=== PATIENT | male | born 1980 | race Caucasian/White ===

== ENCOUNTER 2016-12-03 10:20 | Inpatient (IN) | payer OTHER ==
[2016-12-03 10:39] VITALS: BMI 32.8
[2016-12-03] MEDS ORDERED: Sodium Chloride 0.9% 1,000 ML IV STA (11:16)
--- NOTE | 2016-12-03 11:38 | ED PDOC ---
Arrival/HPI - General Chief Complaint: Abdominal Pain Time Seen by Provider: 12/03/16 11:16 Historian: Patient - History of Present Illness Narrative History of Present Illness (Text): 12/03/16 11:05 A 36 year old male with lower abdominal pain that started yesterday. Pain comes and goes and there are no relieving or exacerbating factors. Patient notes constipation for the past day but contrary to triage notes, the patient denies any difficulty with urination or other complaints at this time. Time/Duration: 24 hours Symptom Onset: Sudden Symptom Course: Unchanged Quality: Other Activities at Onset: Rest Context: Home Past Medical History - Provider Review Nursing Documentation Reviewed: Yes - Psychiatric Hx Substance Use: No Family/Social History - Physician Review Nursing Documentation Reviewed: Yes Family/Social History: Unknown Family HX Smoking Status: Former Smoker Hx Alcohol Use: Yes Frequency of alcohol use: Few days per week Hx Substance Use: No Allergies/Home Meds Allergies/Adverse Reactions: Allergies No Known Allergies Allergy (Verified 12/03/16 10:38) Home Medications: Home Meds Medication Instructions Recorded Confirmed No Known Home Med 12/03/16 12/03/16 Physical Exam - Physical Exam Narrative Physical Exam (Text): - Review of Systems Constitutional: Normal. absent: Fatigue, Weight Change, Fevers Eyes: Normal ENT: Normal Respiratory: Normal absent: SOB, Cough, Sputum Cardiovascular: Normal absent: Chest pain, Palpitations, Syncope Gastrointestinal: Abdominal pain. Constipation. absent: Diarrhea, Nausea, Vomiting Genitourinary: Normal. absent: Dysuria, Frequency, Hematuria Musculoskeletal: Normal. absent: Arthralgias, Back Pain, Neck Pain Skin: Normal Neurological: Normal absent: Focal Weakness Endocrine: Normal Hemo/Lymphatic: Normal Psychiatric: Normal - Physical exam Patient appears age appropriate, speaking full sentences without difficulty - Systems Exam Head: Present: Atraumatic, Normocephalic Pupils: Present: PERRL Extraocular Muscles: Present: EOMI Conjunctiva: Present: Normal Mouth: Present: Moist Mucous Membranes Neck: Present: Normal Range of Motion. No: MIDLINE TENDERNESS, Paraspinal Tenderness Respiratory/Chest: Present: Clear to Auscultation, Good Air Exchange. No: Respiratory Distress, Accessory Muscle Use, Tachypneic Cardiovascular: Present: Regular Rhythm, tachycardia, Normal S1, S2, Peripheral Pulses Present. No: Murmurs Abdomen: Present: Normal Bowel Sounds. Diffuse abdominal tenderness with palpation. No: Peritoneal Signs, Rebound, Guarding, Distention Rectal: Good rectal tone. No hemorrhoids. No stool impaction. Female key account coordinator ( RN- Mis) present. Back: Present: Normal Inspection. No: Midline Tenderness, Paraspinal Tenderness Upper Extremity: Present: Normal Inspection. No: Cyanosis, Edema Lower Extremity: Present: Normal Inspection. No: Edema Neurological: Present: GCS=15, Speech Normal, cranial nerves II through XII fully intact with no cerebellar abnormality, neuro-sensory fully intact. No focal neurological deficits. Skin: Present: Warm, Dry, Normal Color. No: Rashes Lymphatic: Present: OX3, NI, NC Psychiatric: Present: Alert, Oriented x 3, Normal Insight, Normal Concentration Vital Signs Reviewed: Yes Vital Signs Temp Pulse Resp BP Pulse Ox 12/03/16 13:16 106 H 16 126/70 98 12/03/16 12:06 103 H 18 140/78 95 12/03/16 10:38 98.7 F 105 H 16 126/91 H 97 Temperature: Afebrile Blood Pressure: Hypertensive Pulse: Tachycardic Respiratory Rate: Normal Appearance: Positive for: Well-Appearing, Non-Toxic, Comfortable Pain Distress: None Mental Status: Positive for: Alert and Oriented X 3 Medical Decision Making ED Course and Treatment: 12/03/16 11:05 Impression: A 36 year old male with lower abdominal pain. On physical examination the patient has diffuse tenderness with palpation of the abdomen. Differential Diagnosis include but are not limited to: gastritis vs. constipation vs. diverticulitis vs. colitis Plan: -- Abdomen/Pelvis CT -- Labs -- Urinalysis -- Morphine, Toradol and IV Fluids -- Reassess and disposition Progress Notes: 12/03/16 13:15 Abdomen/Pelvis CT: Creator : Matthew Butcher MD IMPRESSION: There is severe diverticulitis of the sigmoid colon. There is mural thickening and extensive mesenteric inflammation. There is no evidence of an abscess or free air. 12/03/16 14:[address] Rodrigues, accepted pt to his service pt aware of and agrees with plan states pain is coming back. resolved after the first dose of morphine. - Lab Interpretations Lab Results: 12/03/16 11:30 12/03/16 11:30 Lab Results 12/03/16 11:30: Sodium 136, Potassium 3.7, Chloride 101, Carbon Dioxide 24, Anion Gap 15, BUN 11, Creatinine 0.7, Est GFR ( Amer) > 60, Est GFR (Non- Af Amer) > 60, Random Glucose 119 H, Calcium 9.6, Total Bilirubin 1.5 H, AST 38 , ALT 77 H, Alkaline Phosphatase 78, Total Protein 8.1, Albumin 4.4, Globulin 3.7, Albumin/Globulin Ratio 1.2, Lipase 63 12/03/16 11:30: PT 10.9, INR 1.01, APTT 27.9 12/03/16 11:30: WBC 15.3 H, RBC 6.04, Hgb 16.3, Hct 46.9, MCV 77.6 L, MCH 27.0, MCHC 34.8, RDW 15.7 H, Plt Count 229, MPV 11.7 H, Gran % 82.5 H, Lymph % (Auto) 10.3 L, Steele % (Auto) 7.0 H, Eos % (Auto) 0.1 L, Baso % (Auto) 0.1, Gran # 12.59 H, Lymph # 1.6, Steele # 1.1 H, Eos # 0.0, Baso # 0.01 I have reviewed the lab results: Yes - RAD Interpretation Radiology Orders: 12/03/16 11:17 ABD & PELVIS IV CONTRAST ONLY [CT] Stat - Medication Orders Current Medication Orders: Discontinued Medications Sodium Chloride (Sodium Chloride 0.9%) 1,000 mls @ 1,000 mls/hr IV .Q1H STA Stop: 12/03/16 12:15 Last Admin: 12/03/16 11:31 Dose: 1,000 mls/hr Iohexol (Omnipaque 350 150 Ml) Confirm Administered Dose 150 ml .ROUTE .STK-MED ONE Stop: 12/03/16 12:43 Ketorolac Tromethamine (Toradol) 15 mg IVP STAT STA Stop: 12/03/16 11:17 Last Admin: 12/03/16 11:31 Dose: 15 mg Ketorolac Tromethamine (Toradol) Confirm Administered Dose 30 mg .ROUTE .STK- MED ONE Stop: 12/03/16 11:23 Last Admin: 12/03/16 11:31 Dose: Morphine Sulfate (Morphine) 8 mg IVP STAT STA Stop: 12/03/16 11:41 Last Admin: 12/03/16 12:02 Dose: 8 mg - Scribe Statement The provider has reviewed the documentation as recorded by the Joe Monroy Provider Joe Attestation: All medical record entries made by the Scribdaria were at my direction and personally dictated by me. I have reviewed the chart and agree that the record accurately reflects my personal performance of the history, physical exam, medical decision making, and the department course for this patient. I have also personally directed, reviewed, and agree with the discharge instructions and disposition. Disposition/Present on Arrival - Present on Arrival Any Indicators Present on Arrival: No History of DVT/PE: No History of Uncontrolled Diabetes: No Urinary Catheter: No History of Decub. Ulcer: No History Surgical Site Infection Following: None - Disposition Have Diagnosis and Disposition been Completed?: Yes Diagnosis: Diverticulitis Disposition: HOSPITALIZED Disposition Time: 14:30 Patient Plan: Admission Condition: FAIR Referrals: Kierra Strange MD [Primary Care Provider] - Follow up with primary
[2016-12-03 11:49] LABS: ADD MANUAL DIFF? NO
[2016-12-03 12:02] LABS: BASO # 0.01 K/mm3 (0.0-2.0); BASO % 0.1 % (0.0-3.0); EOS % 0.1 % (1.5-5.0); GRAN # 12.59 (1.4-6.5); GRAN % 82.5 % (50.0-68.0); HEMATOCRIT 46.9 % (42.0-52.0); LYMPH # 1.6 (1.2-3.4); LYMPH % 10.3 % (22.0-35.0); MEAN CELL VOLUME 77.6 fL (80.0-105.0); MEAN CORPUSCULAR HGB CONC 34.8 g/dl (31.0-37.0); MEAN PLATELET VOLUME 11.7 fl (7.0-11.0); MONO # 1.1 (0.1-0.6); PLATELET COUNT 229 10^3/uL (120.0-450.0); RED CELL DISTRIBUTION WIDTH 15.7 % (11.5-14.5); WHITE BLOOD COUNT 15.3 10^3/ul (4.5-11.0)
[2016-12-03 12:08] LABS: ALB/GLOB RATIO 1.2 (1.1-1.8); ALKALINE PHOSPHATASE 78 U/L (38-133); ALT/SGPT 77 U/L (7-56); AST/SGOT 38 U/L (15-59); BILIRUBIN,TOTAL 1.5 mg/dL (0.2-1.3); BLOOD UREA NITROGEN 11 mg/dL (7-21); CALCIUM 9.6 mg/dL (8.4-10.5); CARBON DIOXIDE 24 mmol/L (21-33); CHLORIDE 101 mmol/L (98-107); GFR AFRICAN-AMERICAN > 60; GLUCOSE,RANDOM 119 mg/dL (70-110); LIPASE 63 U/L (23-300); POTASSIUM 3.7 mmol/L (3.6-5.0); SODIUM 136 mmol/L (132-148); TOTAL PROTEIN 8.1 g/dL (5.8-8.3)
[2016-12-03 12:18] LABS: INR 1.01 (0.93-1.08); PARTIAL THROMBOPLASTIN TIME 27.9 Seconds (23.7-30.8)
--- NOTE | 2016-12-03 13:12 | CT ---
PROCEDURE: CT Abdomen and Pelvis with contrast HISTORY: abd pain COMPARISON: None. TECHNIQUE: Contrast dose: 150 cc of Omni 350 Radiation dose: Total exam DLP = 913 mGy-cm. This CT exam was performed using one or more of the following dose reduction techniques: Automated exposure control, adjustment of the mA and/or kV according to patient size, and/or use of iterative reconstruction technique. FINDINGS: LOWER THORAX: Unremarkable. LIVER: Unremarkable. No gross lesion or ductal dilatation. GALLBLADDER AND BILE DUCTS: Unremarkable. PANCREAS: Unremarkable. No gross lesion or ductal dilatation. SPLEEN: Unremarkable. ADRENALS: Unremarkable. No mass. KIDNEYS AND URETERS: Unremarkable. No hydronephrosis. No solid mass. VASCULATURE: Unremarkable. No aortic aneurysm. BOWEL: There is severe diverticulitis of the sigmoid colon. There is mural thickening and extensive mesenteric inflammation. There is no evidence of an abscess or free air. APPENDIX: Normal appendix. PERITONEUM: Unremarkable. No free fluid. No free air. LYMPH NODES: Unremarkable. No enlarged lymph nodes. BLADDER: Unremarkable. REPRODUCTIVE: Unremarkable. BONES: No acute fracture. OTHER FINDINGS: None. IMPRESSION: There is severe diverticulitis of the sigmoid colon. There is mural thickening and extensive mesenteric inflammation. There is no evidence of an abscess or free air.
[2016-12-03] MEDS ORDERED: cefTRIAXone 1 gm 1 GM/100 ML BAG IV STA (14:30)
[2016-12-03] MEDS ORDERED: metroNIDAZOLE IV 500 mg/100 ml 500 MG/100 ML BAG IVPB STA (14:30)
[2016-12-03] MEDS ORDERED: Morphine 4 mg/ml ISec IVP STA (14:30)
--- NOTE | 2016-12-03 15:18 | CARD ---
APPROVED REPORT EKG Measurement Heart [id number] <Conclusion> Sinus tachycardia NSSTW changes
[2016-12-03] MEDS: Sodium Chloride 0.9% 1,000 ML IV SCH (17:11)
[2016-12-03] MEDS: Morphine 2 mg/ml ISec IVP PRN ×2 (18:12→21:43)
--- NOTE | 2016-12-03 20:02 | CP.PCM.HP ---
<Tanvir Albarado - Last Filed: 12/03/16 19:57> History of Present Illness - History of Present Illness History of Present Illness: CC: Worsening abd pain x2 days HPI: This is a 36 yo M with no PMH who presents to [facility] ED with complaint of diffuse abdominal pain x2 days, progressively worsening, with concurrent diarrhea and reduced PO intake/appetite. Patient reports pain beginning upon waking yesterday, persisting and worsening through the day, no relieved with or without PO intake, but denies emesis with PO intake (1x meal of solid food, fluids throughout the day) or emesis at any other time. Patient came to the ED after the pain worsened further today, beyond what he could tolerate. He denies any similar prior episodes. Notes 2 episodes of minimal watery diarrhea since symptoms began, but denies melena/hematochezia; reports feeling of needing to move his bowels, but unable to pass more than minimal diarrhea and flatus. Denies new/unusual foods in diet prior to presentation, denies prior abdominal surgeries, and denies chest pain/SOB/focal weakness/ dizziness/fever. In the ED, CT abd was obtained and was notable for severe diverticulitis of the sigmoid colon, mural thickening, and extensive mesenteric inflammation, but no abscess or free air evident. EKG was also obtained, only notable for sinus tachy to 105. Labs were notable for WBCs 15.3 and mildly elevated TBili of 1.5. Patient was then admitted for IVF and IV abx for severe diverticulitis. 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 Strange Present on Admission - Present on Admission Any Indicators Present on Admission: No History of DVT/PE: No History of Uncontrolled Diabetes: No Urinary Catheter: No Decubitus Ulcer Present: No Review of Systems - Constitutional Constitutional: Chills. absent: Fever - EENT Eyes: absent: Blurred Vision, Change in Vision, Loss of Vision Ears: absent: Disequilibrium, Dizziness Nose/Mouth/Throat: Sore Throat (1 week prior, resolved prior to current sx with regular use of NSAIDS (last dose yesterday AM)). absent: Dysphagia, Mouth Pain , Neck Pain - Cardiovascular Cardiovascular: absent: Chest Pain, Chest Pain at Rest, Chest Pain with Activity , Dyspnea, Dyspnea on Exertion, Pain Radiating to Arm/Neck/Jaw, Lightheadedness , Palpitations, Rapid Heart Rate, Syncope - Respiratory Respiratory: absent: Cough, Dyspnea, Hemoptysis, Dyspnea on Exertion, Pain on Inspiration - Gastrointestinal Gastrointestinal: Abdominal Pain (progressively worsening abd pain x2 days), Bloating, Constipation (sensation of needing to move bowels more than passing minimal watery diarrhea), Diarrhea (watery diarrhea, no blood noted). absent: Coffee Ground Emesis, Dysphagia, Fecal Incontinence, Hematemesis, Hematochezia, Nausea, Vomiting - Genitourinary Genitourinary: Dysuria (intermittent burning sensation with urination x2 days). absent: Change in Urinary Stream, Difficulty Urinating, Flank Pain, Hematuria , Pyuria - Musculoskeletal Musculoskeletal: absent: Back Pain, Joint Swelling, Neck Pain, Numbness, Stiffness - Integumentary Integumentary: absent: Pruritus, Rash - Neurological Neurological: absent: Disequilibrium, Dizziness, Focal Weakness, Lack of Coordination, Loss of Vision, Syncope, Weakness, Other Visual Disturbances - Psychiatric Psychiatric: absent: Anxiety - Endocrine Endocrine: absent: Fatigue, Palpitations Past Patient History - Past Social History Smoking Status: Former Smoker - PSYCHIATRIC Hx Substance Use: No - SURGICAL HISTORY Hx Surgeries: No Meds Allergies/Adverse Reactions: Allergies Allergy/AdvReac Type Severity Reaction Status Date / Time No Known Allergies Allergy Verified 12/03/16 10:38 Physical Exam - Constitutional Appears: Non-toxic, No Acute Distress (at rest), In Acute Distress (with any movement or any palpation of abdominal region) - Head Exam Head Exam: ATRAUMATIC, NORMAL INSPECTION, NORMOCEPHALIC - Eye Exam Eye Exam: EOMI, Normal appearance. absent: Conjunctival injection, Scleral icterus Pupil Exam: absent: Irregular, Unequal - ENT Exam ENT Exam: Mucous Membranes Moist. absent: Mucous Membranes Dry - Neck Exam Neck exam: Positive for: Full Rom. Negative for: Tenderness - Respiratory Exam Respiratory Exam: Clear to Auscultation Bilateral, NORMAL BREATHING PATTERN. absent: Accessory Muscle Use, Chest Wall Tenderness, Decreased Breath Sounds, Rales, Rhonchi, Wheezes - Cardiovascular Exam Cardiovascular Exam: Tachycardia, REGULAR RHYTHM, +S1, +S2. absent: Bradycardia , Diastolic murmur, Irregular Rhythm, JVD, RRR, Systolic Murmur - GI/Abdominal Exam GI & Abdominal Exam: Guarding, Normal Bowel Sounds, Rebound (moderate diffuse rebound tenderness bilaterally), Soft, Tenderness (acutely and exquisitely tender to any and all abdominal palpation, predominantly at and immediately above waistline region, but still significantly tender to palpation at R and L upper quadrants). absent: Diminished Bowel Sounds, Distended, Firm, Hyperactive Bowel Sounds, Hypoactive Bowel Sounds, Rigid - Rectal Exam Rectal Exam: Deferred (performed by ED physician prior to exam, reported no stool present) - Extremities Exam Extremities exam: Positive for: full ROM, normal capillary refill, normal inspection, pedal pulses present. Negative for: calf tenderness, joint swelling , pedal edema, tenderness - Back Exam Back exam: absent: CVA tenderness (L), CVA tenderness (R) - Neurological Exam Neurological exam: Alert, Oriented x3 - Psychiatric Exam Psychiatric exam: Normal Affect, Normal Mood - Skin Skin Exam: Dry, Intact, Normal Color, Warm Results - Vital Signs Recent Vital Signs: Last Vital Signs Temp 98.7 F 12/03/16 10:38 Pulse 89 12/03/16 16:19 Resp 18 12/03/16 16:19 BP 126/71 12/03/16 16:19 Pulse Ox 99 12/03/16 16:19 - Labs Result Diagrams: 12/03/16 11:30 12/03/16 11:30 Assessment & Plan - Assessment and Plan (Free Text) Assessment: This is a 36 yo M with no PMH who presents to [facility] ED with complaint of diffuse abdominal pain x2 days, progressively worsening, with concurrent diarrhea and reduced PO intake/appetite, and was found to have severe diverticulitis. Plan: 1) Severe diverticulitis -Found on CT abd/pelvis with IV contrast in ED -No signs of abscess or free air, not an acute abdomen requiring surgical intervention -NPO and IVF, bowel rest -Pain control with morphine -Empiric Abx coverage with IV Rocephin and Flagyl (got 1x each in ED) -GI consulted (Dr. Peoples), appreciate any recs; defer to GI for diet advancement -Avoid NSAIDs -F/u leukocytosis on tomorrow AM labs Dispo: Inpt Med/Surg FEN: NPO except meds, NS IVF at 125cc/hr Access: Peripheral IV Consults: GI Ppx: Protonix 40mg IV q12, SCDs for DVT ppx Patient seen, reviewed, and discussed with attending, Dr. Rodrigues. - Date & Time Date: 12/03/16 Time: 14:45 Decision To Admit - Pt Status Changed To: Hospital Disposition Of: Inpatient Admission - Admit Certification Admit to Inpatient:: After my assessment, the patient will require hospitalization for at least two midnights. This is because of the severity of symptoms shown, intensity of services needed, and/or the medical risk in this patient being treated as an outpatient. - . Bed Request Type: Med/Surg <Sebas Rodrigues - Last Filed: 12/03/16 22:44> Results - Vital Signs Recent Vital Signs: Last Vital Signs Temp 98.7 F 12/03/16 21:09 Pulse 89 12/03/16 21:09 Resp 18 12/03/16 21:09 BP 126/71 12/03/16 21:09 Pulse Ox 99 12/03/16 16:19 - Labs Result Diagrams: 12/03/16 11:30 12/03/16 11:30 Attending/Attestation - Attestation I have personally seen and examined this patient.: Yes I have fully participated in the care of the patient.: Yes I have reviewed all pertinent clinical information: Yes Notes (Text): 12/03/16 22:41 36 year old male with no significant past medical history who presents with complaint of lower abdominal pain. He was found to have severe diverticulitis on CT scan. Continue with NPO, IVF, analgesics and antibiotics. GI evaluation is requested. Leukocytosis likely secondary to above. However patient is also complaining of dysuria so UA is ordered. Sebas Rodrigues MD Hospitalist.
[2016-12-03] MEDS ORDERED: Pneumococcal 23-Valent Vaccine IM ONE (21:19)
[2016-12-03] MEDS: metroNIDAZOLE IV 500 mg/100 ml 500 MG/100 ML BAG IVPB SCH (21:38)
[2016-12-04] MEDS: Morphine 2 mg/ml ISec IVP PRN ×4 (01:44→12:59)
[2016-12-04] MEDS: Sodium Chloride 0.9% 1,000 ML IV SCH (01:45)
[2016-12-04] MEDS: metroNIDAZOLE IV 500 mg/100 ml 500 MG/100 ML BAG IVPB SCH ×3 (05:20→22:20)
[2016-12-04 05:40] LABS: PH,URINE 6.5 (4.7-8.0); URINE BILIRUBIN SMALL (NEGATIVE); URINE BLOOD MODERATE (NEGATIVE); URINE GLUCOSE (UA) NEGATIVE (NEGATIVE); URINE KETONE 40 mg/dL (NEGATIVE); URINE LEUKOCYTE ESTERASE NEGATIVE Leu/uL (NEGATIVE); URINE PROTEIN 30 mg/dL (<30 mg/dL)
[2016-12-04 05:55] LABS: URINE APPEARANCE SL CLOUDY (CLEAR); URINE COLOR YELLOW (YELLOW)
[2016-12-04 05:59] LABS: URINE BACTERIA SMALL (NEG); URINE EPITHELIAL CELLS 0 - 2 /hpf (0-5); URINE WBC 0 - 2 /hpf (0-6)
--- NOTE | 2016-12-04 07:23 | CON ---
DATE: 12/04/2016 The patient is a 36-year-old white male admitted with a chief complaint of abdominal pain. The patient has no past medical history of GI issues. Complaining of diffuse abdominal pain about a day and a half prior to admission with diarrhea, but denied any hematemesis or rectal bleeding. The patient's abdominal pain reached a maximum resulting in increased discomfort with mobility , walking upstairs, to the point where he couldn't move. Although he passed some solid bowel movements, this subsequently turned to watery diarrhea prior to admission. This morning, the patient still indicates diffuse abdominal pain increasing with any movement, especially walking and passing urine or passing gas. PHYSICAL EXAMINATION: VITAL SIGNS: I reviewed this patient's vital signs. HEENT: Noncontributory except for dry mouth. LUNGS: Clear to auscultation. HEART: Regular rhythm. ABDOMEN: Nontender in the epigastric, left upper quadrant. The patient is diffusely tender with some rebound noted in all quadrants, especially periumbilical and left lower quadrant. There is a significant fullness appreciated in the left lower quadrant. LABORATORY DATA: Evaluation of the patient's laboratory data indicates white count of 15,000 with an H and H of 16 and 46. INR is within normal limits. Chemistry indicates a mild elevation of AST, ALT, ratio of which is 38/77. I reviewed the CT images and also report. The CAT scan is significant for a mild thickness in the wall of the stomach, scattered areas of stool throughout the colon and a significant amount of inflammation with diverticulitis in the area of the sigmoid colon with mesenteric inflammation and mural thickening, stranding. It is hard to delineate whether there was an abscess. OVERALL ASSESSMENT: This is a 36-year-old white male admitted with severe diverticulitis involving the sigmoid colon. This is his first episode. Review of orders indicates the patient is on metronidazole as well as ceftriaxone and analgesics in the form of morphine which seems to be working. He is currently n.p.o. Due to the amount of rebound this patient is currently experiencing, may consider a surgical evaluation later on this morning. Chris Peoples DO, PhD cc: [id number] TT: 12/04/2016 07:23:23 Confirmation # [id number] Dictation # [id number] [id number]
[2016-12-04 09:07] LABS: ADD MANUAL DIFF? NO
[2016-12-04 09:12] LABS: BASO # 0.01 K/mm3 (0.0-2.0); BASO % 0.1 % (0.0-3.0); EOS % 0.3 % (1.5-5.0); GRAN # 9.92 (1.4-6.5); GRAN % 81.4 % (50.0-68.0); HEMATOCRIT 40.3 % (42.0-52.0); LYMPH # 1.5 (1.2-3.4); MEAN CELL VOLUME 79.3 fL (80.0-105.0); MEAN CORPUSCULAR HEMOGLOBIN 27.6 pg (25.0-35.0); MEAN CORPUSCULAR HGB CONC 34.7 g/dl (31.0-37.0); MEAN PLATELET VOLUME 10.8 fl (7.0-11.0); MONO # 0.8 (0.1-0.6); MONO % 6.2 % (1.0-6.0); PLATELET COUNT 179 10^3/uL (120.0-450.0); RED CELL DISTRIBUTION WIDTH 14.3 % (11.5-14.5); WHITE BLOOD COUNT 12.2 10^3/ul (4.5-11.0)
[2016-12-04 09:20] LABS: ALKALINE PHOSPHATASE 63 U/L (38-133); ALT/SGPT 55 U/L (7-56); AST/SGOT 19 U/L (15-59); BILIRUBIN,TOTAL 1.9 mg/dL (0.2-1.3); BLOOD UREA NITROGEN 10 mg/dL (7-21); CALCIUM 8.9 mg/dL (8.4-10.5); CARBON DIOXIDE 25 mmol/L (21-33); CHLORIDE 101 mmol/L (98-107); GFR AFRICAN-AMERICAN > 60; GLUCOSE,RANDOM 102 mg/dL (70-110); MAGNESIUM 1.7 mg/dL (1.7-2.2); PHOSPHOROUS 2.8 mg/dL (2.5-4.5); POTASSIUM 3.5 mmol/L (3.6-5.0); SODIUM 134 mmol/L (132-148)
[2016-12-04] MEDS ORDERED: cefTRIAXone 2 GM IN NS 2 GM/100 ML BAG IVPB SCH (10:00)
--- NOTE | 2016-12-04 13:44 | CP.PCM.CON ---
<Delvin Perrin - Last Filed: 12/04/16 13:39> History of Present Illness - History of Present Illness History of Present Illness: Surgery: Dr. Forte CC: abdominal pain HPI: Patient is a 36 y/o male who presented last night for left sided abdominal pain. Patient reports pain started on Saturday and progressively got worse. He describes the pain as sharp cramp-like pains. He reports chills but no fever. He denies n/v. He reports normal bowel movements about 3x/day. No blood. He states he has an associated feeling of needing to have a bowel movement however has been unable to today. He denies having pain like this in the past. He denies being seen by a GI doctor in the past, denies colonoscopy. He denies family history of colon CA or other GI problems PMH: denies PSH: age 7 tonsillectomy Social: , denies ETOH abuse or current tobacco use Family: denies family history of colon CA Review of Systems - Constitutional Constitutional: Chills. absent: Anorexia, Fever - EENT Eyes: absent: Blurred Vision, Change in Vision Ears: absent: Disequilibrium, Dizziness Nose/Mouth/Throat: absent: Nasal Congestion, Sore Throat - Cardiovascular Cardiovascular: absent: Chest Pain, Dyspnea - Respiratory Respiratory: absent: Cough, Wheezing - Gastrointestinal Gastrointestinal: Abdominal Pain, Bloating, Cramping. absent: Constipation, Diarrhea, Hematemesis, Hematochezia, Nausea, Vomiting - Genitourinary Genitourinary: absent: Hematuria, Pyuria - Integumentary Integumentary: absent: Wounds, Jaundice - Neurological Neurological: absent: Dizziness, Weakness - Endocrine Endocrine: absent: Polydipsia, Polyphagia - Hematologic/Lymphatic Hematologic: absent: Easy Bleeding, Easy Bruising Past Patient History - Past Social History Smoking Status: Former Smoker - MUSCULOSKELETAL/RHEUMATOLOGICAL Hx Falls: No Hx Fractures: Yes (right arm casted as a child) - PSYCHIATRIC Hx Substance Use: No - SURGICAL HISTORY Hx Surgeries: Yes (tonsillectomy as a child) Meds Allergies/Adverse Reactions: Allergies Allergy/AdvReac Type Severity Reaction Status Date / Time No Known Allergies Allergy Verified 12/03/16 10:38 - Medications Medications: Current Medications Acetaminophen (Tylenol 325mg Tab) 650 mg PO Q4 PRN PRN Reason: Fever >100.4 F Metronidazole (Flagyl) 500 mg in 100 mls @ 100 mls/hr IVPB Q8 [facility] PRN Reason: Protocol Last Admin: 12/04/16 05:20 Dose: 100 mls/hr Ceftriaxone Sodium (Rocephin 2 Gm Ivpb) 2 gm in 100 mls @ 100 mls/hr IVPB DAILY [facility] PRN Reason: Protocol Last Admin: 12/04/16 09:06 Dose: 100 mls/hr Sodium Chloride (Sodium Chloride 0.9%) 1,000 mls @ 125 mls/hr IV .Q8H [facility] Last Admin: 12/04/16 01:45 Dose: 125 mls/hr Potassium Chloride (Potassium Chloride 20 Meq/100 Ml) 20 meq in 100 mls @ 50 mls/hr IVPB Q2H [facility] Stop: 12/04/16 16:44 Last Admin: 12/04/16 12:59 Dose: 50 mls/hr Morphine Sulfate (Morphine) 4 mg IVP Q4H PRN PRN Reason: Pain, moderate (4-7) Ondansetron HCl (Zofran Inj) 4 mg IVP Q4H PRN PRN Reason: Nausea/Vomiting Pantoprazole Sodium (Protonix Inj) 40 mg IVP Q12 [facility] Last Admin: 12/04/16 09:06 Dose: 40 mg Physical Exam - Constitutional Appears: Non-toxic, No Acute Distress - Head Exam Head Exam: ATRAUMATIC, NORMOCEPHALIC - Eye Exam Eye Exam: EOMI, Normal appearance - ENT Exam ENT Exam: Mucous Membranes Moist - Respiratory Exam Respiratory Exam: NORMAL BREATHING PATTERN. absent: Respiratory Distress - Cardiovascular Exam Cardiovascular Exam: REGULAR RHYTHM. absent: Tachycardia - GI/Abdominal Exam GI & Abdominal Exam: Distended, Guarding (voluntary), Soft, Tenderness (LLQ and supra-pubic). absent: Hernia, Rebound, Rigid - Extremities Exam Extremities exam: Positive for: normal inspection. Negative for: calf tenderness - Neurological Exam Neurological exam: Alert, Oriented x3 - Psychiatric Exam Psychiatric exam: Normal Affect, Normal Mood - Skin Skin Exam: Dry, Normal Color, Warm Results - Vital Signs Recent Vital Signs: Last Vital Signs Temp 100.1 F H 12/04/16 08:17 Pulse 100 H 12/04/16 08:17 Resp 22 12/04/16 08:17 BP 127/78 12/04/16 08:17 Pulse Ox 97 12/04/16 08:17 - Labs Result Diagrams: 12/04/16 05:30 12/04/16 05:30 Labs: Laboratory Results - last 24 hr 12/04/16 12/04/16 12/04/16 04:40 05:30 05:30 WBC 12.2 H D RBC 5.08 Hgb 14.0 Hct 40.3 L MCV 79.3 L MCH 27.6 MCHC 34.7 RDW 14.3 Plt Count 179 MPV 10.8 Gran % 81.4 H Lymph % (Auto) 12.0 L [place] % (Auto) 6.2 H Eos % (Auto) 0.3 L Baso % (Auto) 0.1 Gran # 9.92 H Lymph # 1.5 [place] # 0.8 H Eos # 0.0 Baso # 0.01 Sodium 134 Potassium 3.5 L Chloride 101 Carbon Dioxide 25 Anion Gap 12 BUN 10 Creatinine 0.7 Est GFR ( Amer) > 60 Est GFR (Non-Af Amer) > 60 Random Glucose 102 Calcium 8.9 Phosphorus 2.8 Magnesium 1.7 Total Bilirubin 1.9 H AST 19 ALT 55 Alkaline Phosphatase 63 Total Protein 7.0 Albumin 3.5 Globulin 3.4 Albumin/Globulin Ratio 1.0 L Urine Color Yellow Urine Appearance Sl cloudy Urine pH 6.5 Ur Specific [place] 1.025 Urine Protein 30 H Urine Glucose (UA) Negative Urine Ketones 40 H Urine Blood Moderate H Urine Nitrate Negative Urine Bilirubin Small H Urine Urobilinogen 2.0 H Ur Leukocyte Esterase Negative Urine RBC 2 - 5 Urine WBC 0 - 2 Ur Epithelial Cells 0 - 2 Urine Bacteria Small - Impressions Impression: CT: severe acute sigmoid diverticulitis w/o perforation or abscess Assessment & Plan - Assessment and Plan (Free Text) Assessment: 36 y/o male w/ severe acute uncomplicated diverticulitis Plan: -cont ABX IV -cont NPO -serial abdominal exams -encourage ambulation -pain control -IVFs -GI recs -will follow -further recs per Dr. Forte AKWhite PGY1 <Levi Forte - Last Filed: 12/09/16 22:14> Results - Vital Signs Recent Vital Signs: Last Vital Signs Temp 98.5 F 12/07/16 08:42 Pulse 63 12/07/16 08:42 Resp 18 12/07/16 08:42 BP 113/72 12/07/16 08:42 Pulse Ox 97 12/07/16 08:42 - Labs Result Diagrams: 12/07/16 07:00 12/07/16 07:00 Attending/Attestation - Attestation I have personally seen and examined this patient.: Yes I have fully participated in the care of the patient.: Yes I have reviewed all pertinent clinical information: Yes Notes (Text): 12/09/16 22:14 Pt was seen and examined at bedside on 12/05/2016 Agree with above note and assessment Pt with Diverticulitis, resolving C/w IV antibiotics Plan d.w pt and family in detail Risk and benefit explained in detail. C/w current mx
--- NOTE | 2016-12-04 14:56 | CP.PCM.PN ---
<Tanvir Albarado - Last Filed: 12/04/16 16:00> Subjective - Date & Time of Evaluation Date of Evaluation: 12/04/16 Time of Evaluation: 07:50 - Subjective Subjective: Internal Medicine Progress Note for Dr. Rodrigues Patient seen and examined at bedside. Today is hospital day 2. Overnight into this AM, developed temp of 100.1F; no other acute events. Denies chest pain, shortness of breath, nausea, emesis, focal weakness; no BM since admission yesterday, some urination but minimal and still has burning sensation. Notes that pain is controlled with pain medication so long as he isn't moving or so long as no one is palpating his abdomen; he is still acutely tender to any abdominal palpation, and will not let staff test to see if rebound tenderness is still present. Objective - Vital Signs/Intake and Output Vital Signs (last 24 hours): Temp Pulse Resp BP Pulse Ox 100.1 F H 100 H 22 127/78 97 12/04/16 08:17 12/04/16 08:17 12/04/16 08:17 12/04/16 08:17 12/04/16 08:17 Intake and Output: 12/04/16 12/04/16 06:59 18:59 Intake Total 0 1750 Output Total 100 150 Balance -100 1600 - Medications Medications: Current Medications Acetaminophen (Tylenol 325mg Tab) 650 mg PO Q4 PRN PRN Reason: Fever >100.4 F Metronidazole (Flagyl) 500 mg in 100 mls @ 100 mls/hr IVPB Q8 [facility] PRN Reason: Protocol Last Admin: 12/04/16 05:20 Dose: 100 mls/hr Ceftriaxone Sodium (Rocephin 2 Gm Ivpb) 2 gm in 100 mls @ 100 mls/hr IVPB DAILY [facility] PRN Reason: Protocol Last Admin: 12/04/16 09:06 Dose: 100 mls/hr Sodium Chloride (Sodium Chloride 0.9%) 1,000 mls @ 125 mls/hr IV .Q8H [facility] Last Admin: 12/04/16 01:45 Dose: 125 mls/hr Potassium Chloride (Potassium Chloride 20 Meq/100 Ml) 20 meq in 100 mls @ 50 mls/hr IVPB Q2H [facility] Stop: 12/04/16 16:44 Last Admin: 12/04/16 12:59 Dose: 50 mls/hr Morphine Sulfate (Morphine) 4 mg IVP Q4H PRN PRN Reason: Pain, moderate (4-7) Ondansetron HCl (Zofran Inj) 4 mg IVP Q4H PRN PRN Reason: Nausea/Vomiting Pantoprazole Sodium (Protonix Inj) 40 mg IVP Q12 [facility] Last Admin: 12/04/16 09:06 Dose: 40 mg - Labs Labs: 12/04/16 05:30 12/04/16 05:30 PT 10.9 Seconds (9.9-11.8) 12/03/16 11:30 INR 1.01 (0.93-1.08) 12/03/16 11:30 APTT 27.9 Seconds (23.7-30.8) 12/03/16 11:30 - Additional Findings Additional findings: - Constitutional Non-toxic, No Acute Distress (at rest), In Acute Distress (with any movement or any palpation of abdominal region) - Head Exam ATRAUMATIC, NORMAL INSPECTION, NORMOCEPHALIC - Eye Exam EOMI, Normal appearance. absent: Conjunctival injection, Scleral icterus, Pupils Unequal/Irregular - ENT Exam Mucous Membranes Moist. absent: Mucous Membranes Dry - Neck Exam Full Rom. Negative for: Tenderness - Respiratory Exam Clear to Auscultation Bilateral, NORMAL BREATHING PATTERN. absent: Accessory Muscle Use, Chest Wall Tenderness, Decreased Breath Sounds, Rales, Rhonchi, Wheezes - Cardiovascular Exam Tachycardia, REGULAR RHYTHM, +S1, +S2. absent: Bradycardia, Diastolic murmur, Irregular Rhythm, JVD, RRR, Systolic Murmur - GI/Abdominal Exam Guarding, Minimal Bowel sounds, Soft, Tenderness (acutely and exquisitely tender to any and all abdominal palpation, predominantly at and immediately above waistline region, but still significantly tender to palpation at R and L upper quadrants), Not allowing staff to assess for rebound tenderness. absent: Distended, Firm, Rigid - Extremities Exam Full ROM, normal capillary refill, normal inspection, pedal pulses present. Negative for: calf tenderness, joint swelling, pedal edema, tenderness - Back Exam Back exam: absent: CVA tenderness (L), CVA tenderness (R) - Neurological Exam Neurological exam: Alert, Oriented x3 - Psychiatric Exam Psychiatric exam: Normal Affect, Normal Mood - Skin Skin Exam: Dry, Intact, Normal Color, Warm Assessment and Plan - Assessment and Plan (Free Text) Assessment: This is a 36 yo M with no PMH who presents to [facility] with complaint of diffuse abdominal pain x2 days, progressively worsening, with concurrent diarrhea and reduced PO intake/appetite, and was found to have severe diverticulitis. Plan: 1) Severe diverticulitis -Found on CT abd/pelvis with IV contrast in ED -No signs of abscess or free air, not an acute abdomen requiring surgical intervention -NPO and IVF, bowel rest -Pain control with morphine, increased as per surgery -Empiric Abx coverage with IV Rocephin and Flagyl (got 1x each in ED) -GI consulted (Dr. Peoples), appreciate any recs; recs Surgery consult given persistence of severe rebound tenderness this AM -Surgery consulted (Dr. Forte) consulted, appreciate all recs -Avoid NSAIDs -Leukocytosis improving (15.3 to 12.2), but mild temp overnight, continue IV abx Dispo: Inpt Med/Surg, pending repeat assessment by GI, pending reassessment of patient's symptoms FEN: NPO except meds, NS IVF at 125cc/hr Access: Peripheral IV Consults: GI, Surgery Ppx: Protonix 40mg IV q12, SCDs for DVT ppx Patient seen, reviewed, and discussed with attending, Dr. Rodrigues. <Sebas Rodrigues - Last Filed: 12/04/16 17:18> Objective - Vital Signs/Intake and Output Vital Signs (last 24 hours): Temp Pulse Resp BP Pulse Ox 100.1 F H 100 H 22 127/78 97 12/04/16 08:17 12/04/16 08:17 12/04/16 08:17 12/04/16 08:17 12/04/16 08:17 Intake and Output: 12/04/16 12/04/16 06:59 18:59 Intake Total 0 1750 Output Total 100 150 Balance -100 1600 - Medications Medications: Current Medications Acetaminophen (Tylenol 325mg Tab) 650 mg PO Q4 PRN PRN Reason: Fever >100.4 F Metronidazole (Flagyl) 500 mg in 100 mls @ 100 mls/hr IVPB Q8 [facility] PRN Reason: Protocol Last Admin: 12/04/16 15:31 Dose: 100 mls/hr Sodium Chloride (Sodium Chloride 0.9%) 1,000 mls @ 125 mls/hr IV .Q8H [facility] Last Admin: 12/04/16 01:45 Dose: 125 mls/hr Ceftriaxone Sodium (Rocephin 1 Gram Ivpb) 1 gm in 100 mls @ 100 mls/hr IVPB DAILY [facility] PRN Reason: Protocol Morphine Sulfate (Morphine) 4 mg IVP Q4H PRN PRN Reason: Pain, moderate (4-7) Last Admin: 12/04/16 16:04 Dose: 4 mg Ondansetron HCl (Zofran Inj) 4 mg IVP Q4H PRN PRN Reason: Nausea/Vomiting Pantoprazole Sodium (Protonix Inj) 40 mg IVP Q12 [facility] Last Admin: 12/04/16 09:06 Dose: 40 mg - Labs Labs: 12/04/16 05:30 12/04/16 05:30 PT 10.9 Seconds (9.9-11.8) 12/03/16 11:30 INR 1.01 (0.93-1.08) 12/03/16 11:30 APTT 27.9 Seconds (23.7-30.8) 12/03/16 11:30 Attending/Attestation - Attestation I have personally seen and examined this patient.: Yes I have fully participated in the care of the patient.: Yes I have reviewed all pertinent clinical information, including history, physical exam and plan: Yes Notes (Text): 12/04/16 17:09 36 year old male with no significant past medical history who presents with complaint of lower abdominal pain secondary to severe diverticulitis on CT scan. He is NPO with IVF, analgesics and antibiotics. GI evaluation was appreciated. Today he still has significant pain on examination. Surgery evaluation was requested and appreciated. He complained of dysuria and UA was obtained. Hematuria noted without nitrates and LE. UCx is pending. Potassium was low and repleted today. Sebas Rodrigues MD Hospitalist.
[2016-12-04] MEDS: Morphine 4 mg/ml ISec IVP PRN ×2 (16:04→20:09)
[2016-12-05] MEDS: Morphine 4 mg/ml ISec IVP PRN ×6 (00:08→21:47)
--- NOTE | 2016-12-05 06:37 | PN ---
DATE: 12/05/2016 I saw the patient this morning. He is a 36-year-old white male admitted with signs and symptoms of sigmoid diverticulitis. The patient is still currently on antibiotic therapy, still experiencing severe pain. However, pain pattern less diffuse than it was yesterday. Abdomen is mildly less distended. He is passing gas. Denies hematemesis or rectal bleeding. Still extremely tender in the left lower quadrant. Epigastric and left upper quadrant pain pretty much dissipated. He indicates analgesic dose is adequate, but still experiencing severe degree of pain prior to the next injection. PHYSICAL EXAMINATION: VITAL SIGNS: I reviewed this patient's vital signs. HEENT: Significant for dry mouth. LUNGS: Clear to auscultation. HEART: Regular rhythm. ABDOMEN: Significant for decreased tenderness in the area of the right lower quadrant, right upper quadrant. There is still radiation of discomfort on palpation of the periumbilical area. Epigastric and left upper quadrant noncontributory. There is a substantial pain component on palpation of the left paraumbilical. Still experiencing guarding noted in the left lower quadrant. I reviewed this patient's laboratory data. Also, reviewed the notes of respective consultants, including hospitalist. The patient's current orders were reviewed. He is currently on ceftriaxone and metronidazole. OVERALL ASSESSMENT: This is a 36-year-old male admitted with sigmoid diverticulitis. Still experiencing severe degree of pain, currently being followed by medical as well as surgical service. Still experiencing guarding on palpation of the left lower quadrant. I think the medications are taking effect to a greater extent today because the degree of pain as indicated above is much less than on day of admission. Continue on the current regimen. Chris Peoples DO, PhD cc: [id number] TT: 12/05/2016 06:36:12 Confirmation # [id number] Dictation # [id number] jian [employer]
[2016-12-05] MEDS: metroNIDAZOLE IV 500 mg/100 ml 500 MG/100 ML BAG IVPB SCH ×3 (06:48→21:46)
[2016-12-05] MEDS: Sodium Chloride 0.9% 1,000 ML IV SCH ×3 (06:49→17:49)
--- NOTE | 2016-12-05 08:02 | CP.PCM.PN ---
<David Munoz - Last Filed: 12/05/16 07:58> Subjective - Date & Time of Evaluation Date of Evaluation: 12/05/16 Time of Evaluation: 06:55 - Subjective Subjective: David Munoz D.O. PGY-1, General Surgery Progress Note 36 year old male who presented to [facility] for left sided abdominal pain, found to have severe acute uncomplicated diverticulitis. Patient was seen and examined at bedside with surgical team. Patient at this time states that he is doing better, pain is well managed on current regimen, no issues overnight. He is still somewhat tender but definitely improved. Patient still does not have an appetite and has not had a BM yet. Patient would like however to have liquids as he is thirsty. Otherwise no other complains. Objective - Vital Signs/Intake and Output Vital Signs (last 24 hours): Temp Pulse Resp BP Pulse Ox 98 F 98 H 20 111/67 98 12/04/16 16:00 12/04/16 16:00 12/04/16 16:00 12/04/16 16:00 12/04/16 16:00 Intake and Output: 12/05/16 12/05/16 06:59 18:59 Intake Total 0 0 Balance 0 0 - Medications Medications: Current Medications Acetaminophen (Tylenol 325mg Tab) 650 mg PO Q4 PRN PRN Reason: Fever >100.4 F Metronidazole (Flagyl) 500 mg in 100 mls @ 100 mls/hr IVPB Q8 [facility] PRN Reason: Protocol Last Admin: 12/05/16 06:48 Dose: 100 mls/hr Sodium Chloride (Sodium Chloride 0.9%) 1,000 mls @ 125 mls/hr IV .Q8H [facility] Last Admin: 12/05/16 06:49 Dose: 125 mls/hr Ceftriaxone Sodium (Rocephin 1 Gram Ivpb) 1 gm in 100 mls @ 100 mls/hr IVPB DAILY [facility] PRN Reason: Protocol Morphine Sulfate (Morphine) 4 mg IVP Q4H PRN PRN Reason: Pain, moderate (4-7) Last Admin: 12/05/16 04:39 Dose: 4 mg Ondansetron HCl (Zofran Inj) 4 mg IVP Q4H PRN PRN Reason: Nausea/Vomiting Pantoprazole Sodium (Protonix Inj) 40 mg IVP Q12 [facility] Last Admin: 12/04/16 22:20 Dose: 40 mg - Labs Labs: 12/04/16 05:30 12/04/16 05:30 PT 10.9 Seconds (9.9-11.8) 12/03/16 11:30 INR 1.01 (0.93-1.08) 12/03/16 11:30 APTT 27.9 Seconds (23.7-30.8) 12/03/16 11:30 - Constitutional Appears: Non-toxic, No Acute Distress - Head Exam Head Exam: ATRAUMATIC, NORMOCEPHALIC - Eye Exam Eye Exam: EOMI, Normal appearance - ENT Exam ENT Exam: Mucous Membranes Moist - Respiratory Exam Respiratory Exam: absent: Accessory Muscle Use, Respiratory Distress - GI/Abdominal Exam GI & Abdominal Exam: Distended (mild), Guarding (voluntary), Soft, Tenderness ( LLQ/suprapubic) - Neurological Exam Neurological Exam: Alert, Awake, Oriented x3 - Skin Skin Exam: Dry, Warm Assessment and Plan - Assessment and Plan (Free Text) Assessment: 36 year old male who presented to [facility] for left sided abdominal pain, found to have severe acute uncomplicated diverticulitis. Plan: Will advance to clear liquids and see how patient tolerates Cont IV abx Cont serial abd exams Cont current pain regimen Cont IV hydration Discussed with primary team Will continue to follow Will discuss with Dr. Jann Ellis Thank you for the pleasure of participating in the care of this patient. <Levi Forte - Last Filed: 12/09/16 22:17> Objective - Vital Signs/Intake and Output Vital Signs (last 24 hours): Temp Pulse Resp BP Pulse Ox 98.5 F 63 18 113/72 97 12/07/16 08:42 12/07/16 08:42 12/07/16 08:42 12/07/16 08:42 12/07/16 08:42 - Labs Labs: 12/07/16 07:00 12/07/16 07:00 PT 10.9 Seconds (9.9-11.8) 12/03/16 11:30 INR 1.01 (0.93-1.08) 12/03/16 11:30 APTT 27.9 Seconds (23.7-30.8) 12/03/16 11:30 Attending/Attestation - Attestation I have personally seen and examined this patient.: Yes I have fully participated in the care of the patient.: Yes I have reviewed all pertinent clinical information, including history, physical exam and plan: Yes Notes (Text): 12/09/16 22:16 Pt was seen and examined at bedside on 12/05/2016 Agree with above note and assessment Pt with resolving Diverticulitis Plan d.w pt and family in detail Risk and benefit explained in detail.
[2016-12-05 08:34] LABS: ADD MANUAL DIFF? NO
[2016-12-05 08:40] LABS: BASO # 0.01 K/mm3 (0.0-2.0); BASO % 0.1 % (0.0-3.0); EOS # 0.1 (0.0-0.7); EOS % 1.6 % (1.5-5.0); GRAN # 6.13 (1.4-6.5); GRAN % 74.2 % (50.0-68.0); HEMATOCRIT 38.8 % (42.0-52.0); LYMPH # 1.5 (1.2-3.4); LYMPH % 17.7 % (22.0-35.0); MEAN CELL VOLUME 79.5 fL (80.0-105.0); MEAN CORPUSCULAR HEMOGLOBIN 27.7 pg (25.0-35.0); MEAN CORPUSCULAR HGB CONC 34.8 g/dl (31.0-37.0); MEAN PLATELET VOLUME 10.9 fl (7.0-11.0); MONO # 0.5 (0.1-0.6); MONO % 6.4 % (1.0-6.0); PLATELET COUNT 180 10^3/uL (120.0-450.0); RED CELL DISTRIBUTION WIDTH 14.1 % (11.5-14.5); WHITE BLOOD COUNT 8.3 10^3/ul (4.5-11.0)
[2016-12-05 09:19] LABS: ALKALINE PHOSPHATASE 66 U/L (38-133); ALT/SGPT 50 U/L (7-56); AST/SGOT 24 U/L (15-59); BILIRUBIN,TOTAL 1.4 mg/dL (0.2-1.3); BLOOD UREA NITROGEN 11 mg/dL (7-21); CALCIUM 8.8 mg/dL (8.4-10.5); CARBON DIOXIDE 23 mmol/L (21-33); CHLORIDE 102 mmol/L (98-107); GFR AFRICAN-AMERICAN > 60; GLUCOSE,RANDOM 87 mg/dL (70-110); MAGNESIUM 1.8 mg/dL (1.7-2.2); PHOSPHOROUS 3.3 mg/dL (2.5-4.5); POTASSIUM 3.8 mmol/L (3.6-5.0); SODIUM 135 mmol/L (132-148); TOTAL PROTEIN 6.9 g/dL (5.8-8.3)
[2016-12-05] MEDS: cefTRIAXone 1 gm 1 GM/100 ML BAG IVPB SCH (09:44)
--- NOTE | 2016-12-05 13:58 | CP.PCM.PN ---
<Tanvir Albarado - Last Filed: 12/05/16 13:53> Subjective - Date & Time of Evaluation Date of Evaluation: 12/05/16 Time of Evaluation: 07:30 - Subjective Subjective: Internal Medicine Progress Note for Dr. Rodrigues Patient seen and examined at bedside. Today is hospital day 3. No acute events overnight, no further fevers noted. Today, notes pain is better controlled, but still present with palpation. No appetite, no emesis. Denies BM, but still passing some gas. Denies chest pain, shortness of breath, focal weakness, room spinning. Objective - Vital Signs/Intake and Output Vital Signs (last 24 hours): Temp Pulse Resp BP Pulse Ox 98.9 F 91 H 18 116/72 94 L 12/05/16 06:00 12/05/16 06:00 12/05/16 06:00 12/05/16 06:00 12/05/16 06:00 Intake and Output: 12/05/16 12/05/16 06:59 18:59 Intake Total 0 0 Balance 0 0 - Medications Medications: Current Medications Acetaminophen (Tylenol 325mg Tab) 650 mg PO Q4 PRN PRN Reason: Fever >100.4 F Metronidazole (Flagyl) 500 mg in 100 mls @ 100 mls/hr IVPB Q8 [facility] PRN Reason: Protocol Last Admin: 12/05/16 13:35 Dose: 100 mls/hr Sodium Chloride (Sodium Chloride 0.9%) 1,000 mls @ 125 mls/hr IV .Q8H [facility] Last Admin: 12/05/16 08:51 Dose: 125 mls/hr Ceftriaxone Sodium (Rocephin 1 Gram Ivpb) 1 gm in 100 mls @ 100 mls/hr IVPB DAILY [facility] PRN Reason: Protocol Last Admin: 12/05/16 09:44 Dose: 100 mls/hr Morphine Sulfate (Morphine) 4 mg IVP Q4H PRN PRN Reason: Pain, moderate (4-7) Last Admin: 12/05/16 13:36 Dose: 4 mg Ondansetron HCl (Zofran Inj) 4 mg IVP Q4H PRN PRN Reason: Nausea/Vomiting Pantoprazole Sodium (Protonix Inj) 40 mg IVP Q12 [facility] Last Admin: 12/05/16 09:44 Dose: 40 mg - Labs Labs: 12/05/16 08:15 12/05/16 08:15 PT 10.9 Seconds (9.9-11.8) 12/03/16 11:30 INR 1.01 (0.93-1.08) 12/03/16 11:30 APTT 27.9 Seconds (23.7-30.8) 12/03/16 11:30 - Additional Findings Additional findings: - Constitutional Non-toxic, No Acute Distress (at rest), In Acute Distress (with any movement or any palpation of abdominal region) - Head Exam ATRAUMATIC, NORMAL INSPECTION, NORMOCEPHALIC - Eye Exam EOMI, Normal appearance. absent: Conjunctival injection, Scleral icterus, Pupils Unequal/Irregular - ENT Exam Mucous Membranes Moist. absent: Mucous Membranes Dry - Neck Exam Full Rom. Negative for: Tenderness - Respiratory Exam Clear to Auscultation Bilateral, NORMAL BREATHING PATTERN. absent: Accessory Muscle Use, Chest Wall Tenderness, Decreased Breath Sounds, Rales, Rhonchi, Wheezes - Cardiovascular Exam Tachycardia, REGULAR RHYTHM, +S1, +S2. absent: Bradycardia, Diastolic murmur, Irregular Rhythm, JVD, RRR, Systolic Murmur - GI/Abdominal Exam Guarding, Minimal Bowel sounds, Soft, Tenderness (acutely and exquisitely tender to any and all abdominal palpation, predominantly at and immediately above waistline region, but still significantly tender to palpation at R and L upper quadrants; improved from yesterday). absent: Distended, Firm, Rigid - Extremities Exam Full ROM, normal capillary refill, normal inspection, pedal pulses present. Negative for: calf tenderness, joint swelling, pedal edema, tenderness - Back Exam Back exam: absent: CVA tenderness (L), CVA tenderness (R) - Neurological Exam Neurological exam: Alert, Oriented x3 - Psychiatric Exam Psychiatric exam: Normal Affect, Normal Mood - Skin Skin Exam: Dry, Intact, Normal Color, Warm Assessment and Plan - Assessment and Plan (Free Text) Assessment: This is a 36 yo M with no PMH who [place] [facility] [place] with complaint of diffuse abdominal pain x2 days, progressively worsening, with concurrent diarrhea and reduced PO intake/appetite, and was found to have severe diverticulitis. Plan: 1) Severe diverticulitis -Found on CT abd/pelvis with IV contrast in ED -No signs of abscess or free air, not an acute abdomen requiring surgical intervention -NPO and IVF, bowel rest -Pain control with morphine, increased as per surgery -Empiric Abx coverage with IV Rocephin and Flagyl (got 1x each in ED) -GI consulted (Dr. Peoples), appreciate any recs; continue current medical regimen at this time -Surgery consulted (Dr. Forte) consulted, appreciate all recs; advance to clear liquids, no surgical intervention planned at this time -Avoid NSAIDs -Leukocytosis resolved (8.3), but will continue IV abx for now as per GI Dispo: Inpt Med/Surg, continue current medical management as per GI and Surgery FEN: Clear liquids, NS IVF at 125cc/hr Access: Peripheral IV Consults: GI, Surgery Ppx: Protonix 40mg IV q12, SCDs for DVT ppx Patient seen, reviewed, and discussed with attending, Dr. Rodrigues. <Sebas Rodrigues - Last Filed: 12/05/16 17:21> Objective - Vital Signs/Intake and Output Vital Signs (last 24 hours): Temp Pulse Resp BP Pulse Ox 98.9 F 91 H 18 116/72 94 L 12/05/16 06:00 12/05/16 06:00 12/05/16 06:00 12/05/16 06:00 12/05/16 06:00 Intake and Output: 12/05/16 12/05/16 06:59 18:59 Intake Total 0 0 Balance 0 0 - Medications Medications: Current Medications Acetaminophen (Tylenol 325mg Tab) 650 mg PO Q4 PRN PRN Reason: Fever >100.4 F Metronidazole (Flagyl) 500 mg in 100 mls @ 100 mls/hr IVPB Q8 [facility] PRN Reason: Protocol Last Admin: 12/05/16 13:35 Dose: 100 mls/hr Sodium Chloride (Sodium Chloride 0.9%) 1,000 mls @ 125 mls/hr IV .Q8H [facility] Last Admin: 12/05/16 08:51 Dose: 125 mls/hr Ceftriaxone Sodium (Rocephin 1 Gram Ivpb) 1 gm in 100 mls @ 100 mls/hr IVPB DAILY [facility] PRN Reason: Protocol Last Admin: 12/05/16 09:44 Dose: 100 mls/hr Morphine Sulfate (Morphine) 4 mg IVP Q4H PRN PRN Reason: Pain, moderate (4-7) Last Admin: 12/05/16 13:36 Dose: 4 mg Ondansetron HCl (Zofran Inj) 4 mg IVP Q4H PRN PRN Reason: Nausea/Vomiting Pantoprazole Sodium (Protonix Inj) 40 mg IVP Q12 [facility] Last Admin: 12/05/16 09:44 Dose: 40 mg - Labs Labs: 12/05/16 08:15 12/05/16 08:15 PT 10.9 Seconds (9.9-11.8) 12/03/16 11:30 INR 1.01 (0.93-1.08) 12/03/16 11:30 APTT 27.9 Seconds (23.7-30.8) 12/03/16 11:30 Attending/Attestation - Attestation I have personally seen and examined this patient.: Yes I have fully participated in the care of the patient.: Yes I have reviewed all pertinent clinical information, including history, physical exam and plan: Yes Notes (Text): 12/05/16 17:15 36 year old male with no significant past medical history who presented with complaint of lower abdominal pain secondary to severe diverticulitis on CT scan. He is NPO with IVF, analgesics and antibiotics. He is being followed by both GI and surgery. His symptoms are slowly improving. Can consider clear liquid diet if okay with GI/surgery. Dysuria has improved. UA was noted. Ucx is negative. Sebas Rodrigues MD Hospitalist.
[2016-12-05 18:05] VITALS: O2SAT 97
[2016-12-06] MEDS: Sodium Chloride 0.9% 1,000 ML IV SCH ×4 (01:00→17:34)
[2016-12-06] MEDS: Morphine 4 mg/ml ISec IVP PRN ×5 (02:26→22:05)
[2016-12-06] MEDS: metroNIDAZOLE IV 500 mg/100 ml 500 MG/100 ML BAG IVPB SCH ×3 (05:56→22:04)
--- NOTE | 2016-12-06 07:23 | PN ---
DATE: 12/06/2016 I examined the patient this morning. He is a 36-year-old white male admitted with signs and symptoms of sigmoid diverticulitis. The patient is currently improving on the current therapeutic regimen which consists of antibiotics, analgesics, IV fluids, etc. He handled a very small volume of clear liquids yesterday without problems. He did have a small bowel movement yesterday as well. The pain was rated this morning on the range of 10 at a 4 or 5/10. PHYSICAL EXAMINATION: VITAL SIGNS: I reviewed this patient's vital signs. HEENT: Noncontributory. LUNGS: Clear to auscultation. HEART: Regular rhythm. ABDOMEN: Significant for some residual referred pain on palpation of the periumbilical area. There is a tenderness still experienced in the left paraumbilical and especially in the area of the left lower quadrant. The left lower quadrant is still extremely tender. GENITOURINARY: Note that he is still complaining about testicular type discomfort, especially when he passes a urine specimen. I reviewed this patient's laboratory results. OVERALL ASSESSMENT: This is a 36-year-old white male admitted with complaints of sigmoid diverticulitis, currently improving on a therapeutic regimen. Would maintain the current antibiotics as well as analgesics. The patient deserves a very slow titration up of his oral intake. He will be evaluated later on by the house staff as well as surgery. No changes recommended in current regimen. Close follow up by surgery is still recommended due to the x-ray findings as well as findings on physical exam. Chris Peoples DO, PhD cc: [id number] TT: 12/06/2016 07:23:22 Confirmation # [id number] Dictation # [id number] [facility]
[2016-12-06] MEDS: cefTRIAXone 1 gm 1 GM/100 ML BAG IVPB SCH (09:28)
[2016-12-06 11:42] LABS: ADD MANUAL DIFF? NO
[2016-12-06 11:43] LABS: BASO # 0.01 K/mm3 (0.0-2.0); BASO % 0.2 % (0.0-3.0); EOS # 0.2 (0.0-0.7); EOS % 3.1 % (1.5-5.0); GRAN # 3.06 (1.4-6.5); GRAN % 63.9 % (50.0-68.0); HEMATOCRIT 38.3 % (42.0-52.0); LYMPH # 1.1 (1.2-3.4); LYMPH % 23.6 % (22.0-35.0); MEAN CELL VOLUME 78.5 fL (80.0-105.0); MEAN CORPUSCULAR HEMOGLOBIN 26.8 pg (25.0-35.0); MEAN CORPUSCULAR HGB CONC 34.2 g/dl (31.0-37.0); MEAN PLATELET VOLUME 10.6 fl (7.0-11.0); MONO # 0.4 (0.1-0.6); MONO % 9.2 % (1.0-6.0); PLATELET COUNT 211 10^3/uL (120.0-450.0); RED CELL DISTRIBUTION WIDTH 13.9 % (11.5-14.5); WHITE BLOOD COUNT 4.8 10^3/ul (4.5-11.0)
[2016-12-06 11:58] LABS: ALB/GLOB RATIO 1.1 (1.1-1.8); ALKALINE PHOSPHATASE 56 U/L (38-133); ALT/SGPT 49 U/L (7-56); AST/SGOT 27 U/L (15-59); BILIRUBIN,TOTAL 0.7 mg/dL (0.2-1.3); BLOOD UREA NITROGEN 11 mg/dL (7-21); CALCIUM 8.8 mg/dL (8.4-10.5); CARBON DIOXIDE 24 mmol/L (21-33); CHLORIDE 101 mmol/L (95-110); GFR AFRICAN-AMERICAN > 60; GLUCOSE,RANDOM 110 mg/dL (70-110); MAGNESIUM 1.9 mg/dL (1.7-2.2); PHOSPHOROUS 3.1 mg/dL (2.5-4.5); POTASSIUM 3.8 mmol/L (3.6-5.0); SODIUM 134 mmol/L (132-148); TOTAL PROTEIN 6.7 g/dL (5.8-8.3)
--- NOTE | 2016-12-06 12:07 | CP.PCM.PN ---
Subjective - Date & Time of Evaluation Date of Evaluation: 12/06/16 Time of Evaluation: 10:30 - Subjective Subjective: David Munoz D.O. PGY-1, General Surgery Progress Note 36 year old male who presented to [facility] ER for left sided abdominal pain, found to have severe acute uncomplicated diverticulitis. Patient was seen and examined at bedside with surgical team. Patient is doing very well, was found sitting and reading and was very comfortable. Patient states that he passed some stool yesterday but not much and that he has been having some flatus. Patient states that his pain is very much improved and that he even asked for his morphine to be reduced because he didn't need so much of it anymore. Objective - Vital Signs/Intake and Output Vital Signs (last 24 hours): Temp Pulse Resp BP Pulse Ox 98.4 F 68 18 106/59 L 97 12/06/16 08:49 12/06/16 08:49 12/06/16 08:49 12/06/16 08:49 12/06/16 08:49 Intake and Output: 12/06/16 12/06/16 06:59 18:59 Intake Total 720 Balance 720 - Medications Medications: Current Medications Acetaminophen (Tylenol 325mg Tab) 650 mg PO Q4 PRN PRN Reason: Fever >100.4 F Metronidazole (Flagyl) 500 mg in 100 mls @ 100 mls/hr IVPB Q8 [facility] PRN Reason: Protocol Last Admin: 12/06/16 05:56 Dose: 100 mls/hr Sodium Chloride (Sodium Chloride 0.9%) 1,000 mls @ 125 mls/hr IV .Q8H [facility] Last Admin: 12/06/16 02:32 Dose: 125 mls/hr Ceftriaxone Sodium (Rocephin 1 Gram Ivpb) 1 gm in 100 mls @ 100 mls/hr IVPB DAILY [facility]IE PRN Reason: Protocol Last Admin: 12/06/16 09:28 Dose: 100 mls/hr Morphine Sulfate (Morphine) 3 mg IVP Q4H PRN PRN Reason: Pain, moderate (4-7) Last Admin: 12/06/16 11:41 Dose: 3 mg Ondansetron HCl (Zofran Inj) 4 mg IVP Q4H PRN PRN Reason: Nausea/Vomiting Pantoprazole Sodium (Protonix Inj) 40 mg IVP Q12 [facility] Last Admin: 12/06/16 09:28 Dose: 40 mg - Labs Labs: 12/06/16 11:40 12/05/16 08:15 PT 10.9 Seconds (9.9-11.8) 12/03/16 11:30 INR 1.01 (0.93-1.08) 12/03/16 11:30 APTT 27.9 Seconds (23.7-30.8) 12/03/16 11:30 - Constitutional Appears: Well, Non-toxic, No Acute Distress - Head Exam Head Exam: ATRAUMATIC, NORMOCEPHALIC - Eye Exam Eye Exam: EOMI, Normal appearance - ENT Exam ENT Exam: Mucous Membranes Moist - Respiratory Exam Respiratory Exam: absent: Accessory Muscle Use, Respiratory Distress - GI/Abdominal Exam GI & Abdominal Exam: Distended (improved), Guarding (mild voluntary), Soft, Tenderness (mild, on deep palpation over lower quadrants) - Skin Skin Exam: Dry, Warm Assessment and Plan - Assessment and Plan (Free Text) Assessment: 36 year old male who presented to [facility] ER for left sided abdominal pain, found to have severe acute uncomplicated diverticulitis. Plan: Slowly improving Will advance diet to full liquids and monitor Cont IV abx, will need a total of at least 2 weeks Cont serial abd exams Cont current pain regimen, titrate Cont IV hydration Discussed with primary team Patient will need to follow up with GI for a colonoscopy in 6 weeks and can follow up with surgery as needed Will continue to follow Will discuss with attending physician. Thank you for the pleasure of participating in the care of this patient.
[2016-12-06] MEDS ORDERED: Sodium Chloride 0.9% 1,000 ML IV SCH (18:30)
--- NOTE | 2016-12-06 18:38 | CP.PCM.PN ---
<Tanvir Albarado - Last Filed: 12/06/16 18:34> Subjective - Date & Time of Evaluation Date of Evaluation: 12/06/16 Time of Evaluation: 07:35 - Subjective Subjective: Internal Medicine Progress Note for Dr. Rodrigues Patient seen and examined at bedside. Today is hospital day 4. No acute events overnight, no further fevers noted. Today, notes pain is much better controlled, more concentrated in lower abdominal quadrants and not severe pain after morphine wears off prior to next dose. Tolerating clear liquids, no emesis. One BM yesterday, and still passing some gas. Denies chest pain, shortness of breath, focal weakness, room spinning. Objective - Vital Signs/Intake and Output Vital Signs (last 24 hours): Temp Pulse Resp BP Pulse Ox 98.7 F 78 20 112/71 97 12/06/16 16:00 12/06/16 16:00 12/06/16 16:00 12/06/16 16:00 12/06/16 16:00 Intake and Output: 12/06/16 12/06/16 06:59 18:59 Intake Total 720 Balance 720 - Medications Medications: Current Medications Acetaminophen (Tylenol 325mg Tab) 650 mg PO Q4 PRN PRN Reason: Fever >100.4 F Metronidazole (Flagyl) 500 mg in 100 mls @ 100 mls/hr IVPB Q8 [facility]IE PRN Reason: Protocol Last Admin: 12/06/16 14:23 Dose: 100 mls/hr Ceftriaxone Sodium (Rocephin 1 Gram Ivpb) 1 gm in 100 mls @ 100 mls/hr IVPB DAILY [facility] PRN Reason: Protocol Last Admin: 12/06/16 09:28 Dose: 100 mls/hr Sodium Chloride (Sodium Chloride 0.9%) 1,000 mls @ 100 mls/hr IV .Q10H [facility] Morphine Sulfate (Morphine) 3 mg IVP Q4H PRN PRN Reason: Pain, moderate (4-7) Last Admin: 12/06/16 16:55 Dose: 3 mg Ondansetron HCl (Zofran Inj) 4 mg IVP Q4H PRN PRN Reason: Nausea/Vomiting Pantoprazole Sodium (Protonix Inj) 40 mg IVP Q12 [facility] Last Admin: 12/06/16 09:28 Dose: 40 mg - Labs Labs: 12/06/16 11:40 12/06/16 11:40 PT 10.9 Seconds (9.9-11.8) 12/03/16 11:30 INR 1.01 (0.93-1.08) 12/03/16 11:30 APTT 27.9 Seconds (23.7-30.8) 12/03/16 11:30 - Additional Findings Additional findings: - Constitutional Non-toxic, No Acute Distress - Head Exam ATRAUMATIC, NORMAL INSPECTION, NORMOCEPHALIC - Eye Exam EOMI, Normal appearance. absent: Conjunctival injection, Scleral icterus, Pupils Unequal/Irregular - ENT Exam Mucous Membranes Moist. absent: Mucous Membranes Dry - Neck Exam Full Rom. Negative for: Tenderness - Respiratory Exam Clear to Auscultation Bilateral, NORMAL BREATHING PATTERN. absent: Accessory Muscle Use, Chest Wall Tenderness, Decreased Breath Sounds, Rales, Rhonchi, Wheezes - Cardiovascular Exam Tachycardia, REGULAR RHYTHM, +S1, +S2. absent: Bradycardia, Diastolic murmur, Irregular Rhythm, JVD, RRR, Systolic Murmur - GI/Abdominal Exam Guarding, Minimal Bowel sounds, Soft, Tenderness (tenderness to palpation predominantly at bilateral lower quadrants, pain significantly better compared to exam yesterday). absent: Distended, Firm, Rigid - Extremities Exam Full ROM, normal capillary refill, normal inspection, pedal pulses present. Negative for: calf tenderness, joint swelling, pedal edema, tenderness - Back Exam Back exam: absent: CVA tenderness (L), CVA tenderness (R) - Neurological Exam Neurological exam: Alert, Oriented x3 - Psychiatric Exam Psychiatric exam: Normal Affect, Normal Mood - Skin Skin Exam: Dry, Intact, Normal Color, Warm Assessment and Plan - Assessment and Plan (Free Text) Assessment: This is a 36 yo M with no PMH who presents to [facility] [place] [facility] ED with complaint of diffuse abdominal pain x2 days, progressively worsening, with concurrent diarrhea and reduced PO intake/appetite, and was found to have severe diverticulitis. Plan: 1) Severe diverticulitis -Found on CT abd/pelvis with IV contrast in ED -No signs of abscess or free air, not an acute abdomen requiring surgical intervention -Advanced to clear liquids, tolerating well; as per Surgery will advance to full liquids tonight and assess after -Weaning pain control as per Pt's request, Morphine decreased from 4mg to 3mg Q4 PRN -Empiric Abx coverage with IV Rocephin and Flagyl (got 1x each in ED), as per Surgery will need two weeks each total -GI consulted (Dr. Peoples), appreciate any recs; continue current medical regimen at this time -Surgery consulted (Dr. Forte) consulted, appreciate all recs; advance to full liquids, no surgical intervention planned at this time -Avoid NSAIDs Dispo: Inpt Med/Surg, continue current medical management as per GI and Surgery FEN: Full liquids, NS IVF at 125cc/hr Access: Peripheral IV Consults: GI, Surgery Ppx: Protonix 40mg IV q12, SCDs for DVT ppx Patient seen, reviewed, and discussed with attending, Dr. Rodrigues. <Sebas Rodrigues - Last Filed: 12/06/16 22:20> Objective - Vital Signs/Intake and Output Vital Signs (last 24 hours): Temp Pulse Resp BP Pulse Ox 98.7 F 78 20 112/71 97 12/06/16 16:00 12/06/16 16:00 12/06/16 16:00 12/06/16 16:00 12/06/16 16:00 - Medications Medications: Current Medications Acetaminophen (Tylenol 325mg Tab) 650 mg PO Q4 PRN PRN Reason: Fever >100.4 F Metronidazole (Flagyl) 500 mg in 100 mls @ 100 mls/hr IVPB Q8 [facility] PRN Reason: Protocol Last Admin: 12/06/16 22:04 Dose: 100 mls/hr Ceftriaxone Sodium (Rocephin 1 Gram Ivpb) 1 gm in 100 mls @ 100 mls/hr IVPB DAILY [facility] PRN Reason: Protocol Last Admin: 12/06/16 09:28 Dose: 100 mls/hr Sodium Chloride (Sodium Chloride 0.9%) 1,000 mls @ 100 mls/hr IV .Q10H [facility] Last Admin: 12/06/16 18:48 Dose: 100 mls/hr Morphine Sulfate (Morphine) 3 mg IVP Q4H PRN PRN Reason: Pain, moderate (4-7) Last Admin: 12/06/16 22:05 Dose: 3 mg Ondansetron HCl (Zofran Inj) 4 mg IVP Q4H PRN PRN Reason: Nausea/Vomiting Pantoprazole Sodium (Protonix Inj) 40 mg IVP Q12 [facility] Last Admin: 12/06/16 22:05 Dose: 40 mg - Labs Labs: 12/06/16 11:40 12/06/16 11:40 PT 10.9 Seconds (9.9-11.8) 12/03/16 11:30 INR 1.01 (0.93-1.08) 12/03/16 11:30 APTT 27.9 Seconds (23.7-30.8) 12/03/16 11:30 Attending/Attestation - Attestation I have personally seen and examined this patient.: Yes I have fully participated in the care of the patient.: Yes I have reviewed all pertinent clinical information, including history, physical exam and plan: Yes Notes (Text): 12/06/16 22:18 36 year old male with no significant past medical history who presented with complaint of lower abdominal pain secondary to severe diverticulitis on CT scan. He is on analgesics and antibiotics. GI and surgery are following. His symptoms are beginning to improve. Will begin to advance diet and taper his analgesics. Dysuria has improved. UA was noted. Ucx is negative. Sebas Rodrigues MD Hospitalist.
[2016-12-07] MEDS: Morphine 4 mg/ml ISec IVP PRN ×2 (02:13→06:46)
[2016-12-07] MEDS: metroNIDAZOLE IV 500 mg/100 ml 500 MG/100 ML BAG IVPB SCH ×2 (05:58→13:50)
[2016-12-07 07:40] LABS: ADD MANUAL DIFF? NO
[2016-12-07 07:49] LABS: BASO # 0.03 K/mm3 (0.0-2.0); BASO % 0.5 % (0.0-3.0); EOS # 0.2 (0.0-0.7); EOS % 2.6 % (1.5-5.0); GRAN # 3.29 (1.4-6.5); GRAN % 56.9 % (50.0-68.0); HEMATOCRIT 39.5 % (42.0-52.0); LYMPH # 1.6 (1.2-3.4); LYMPH % 27.5 % (22.0-35.0); MEAN CELL VOLUME 78.4 fL (80.0-105.0); MEAN CORPUSCULAR HEMOGLOBIN 27.8 pg (25.0-35.0); MEAN CORPUSCULAR HGB CONC 35.4 g/dl (31.0-37.0); MONO # 0.7 (0.1-0.6); MONO % 12.5 % (1.0-6.0); PLATELET COUNT 238 10^3/uL (120.0-450.0); RED CELL DISTRIBUTION WIDTH 13.8 % (11.5-14.5); WHITE BLOOD COUNT 5.8 10^3/ul (4.5-11.0)
[2016-12-07 08:02] LABS: ALB/GLOB RATIO 1.1 (1.1-1.8); ALKALINE PHOSPHATASE 62 U/L (38-133); ALT/SGPT 49 U/L (7-56); AST/SGOT 32 U/L (15-59); BILIRUBIN,TOTAL 0.8 mg/dL (0.2-1.3); CALCIUM 9.1 mg/dL (8.4-10.5); CARBON DIOXIDE 25 mmol/L (21-33); CHLORIDE 100 mmol/L (95-110); GFR AFRICAN-AMERICAN > 60; GLUCOSE,RANDOM 90 mg/dL (70-110); MAGNESIUM 1.8 mg/dL (1.7-2.2); POTASSIUM 3.8 mmol/L (3.6-5.0); SODIUM 133 mmol/L (132-148)
[2016-12-07 08:18] LABS: BLOOD UREA NITROGEN 9 mg/dL (7-21)
--- NOTE | 2016-12-07 08:26 | CP.PCM.PN ---
Subjective - Date & Time of Evaluation Date of Evaluation: 12/07/16 Time of Evaluation: 06:45 - Subjective Subjective: David Munoz D.O. PGY-1, General Surgery Progress Note 36 year old male who presented to [facility] ER for left sided abdominal pain, found to have severe acute uncomplicated diverticulitis. Patient was seen and examined at bedside with surgical team. Patient is doing very well and states that he would like to go home. Patient states that he has been passing gas and that he had a small bowel movement yesterday without any issues. Patient would like to try a regular diet today as he has not had any more issues with any nausea and vomiting. Patient otherwise had no complaints. Objective - Vital Signs/Intake and Output Vital Signs (last 24 hours): Temp Pulse Resp BP Pulse Ox 98.7 F 78 20 112/71 97 12/06/16 16:00 12/06/16 16:00 12/06/16 16:00 12/06/16 16:00 12/06/16 16:00 Intake and Output: 12/07/16 12/07/16 06:59 18:59 Intake Total 240 Balance 240 - Medications Medications: Current Medications Acetaminophen (Tylenol 325mg Tab) 650 mg PO Q4 PRN PRN Reason: Fever >100.4 F Metronidazole (Flagyl) 500 mg in 100 mls @ 100 mls/hr IVPB Q8 [facility] PRN Reason: Protocol Last Admin: 12/07/16 05:58 Dose: 100 mls/hr Ceftriaxone Sodium (Rocephin 1 Gram Ivpb) 1 gm in 100 mls @ 100 mls/hr IVPB DAILY [facility] PRN Reason: Protocol Last Admin: 12/06/16 09:28 Dose: 100 mls/hr Sodium Chloride (Sodium Chloride 0.9%) 1,000 mls @ 100 mls/hr IV .Q10H [facility] Last Admin: 12/06/16 18:48 Dose: 100 mls/hr Morphine Sulfate (Morphine) 3 mg IVP Q4H PRN PRN Reason: Pain, moderate (4-7) Last Admin: 12/07/16 06:46 Dose: 3 mg Ondansetron HCl (Zofran Inj) 4 mg IVP Q4H PRN PRN Reason: Nausea/Vomiting Pantoprazole Sodium (Protonix Inj) 40 mg IVP Q12 [facility] Last Admin: 12/06/16 22:05 Dose: 40 mg - Labs Labs: 12/07/16 07:00 12/07/16 07:00 PT 10.9 Seconds (9.9-11.8) 12/03/16 11:30 INR 1.01 (0.93-1.08) 12/03/16 11:30 APTT 27.9 Seconds (23.7-30.8) 12/03/16 11:30 - Constitutional Appears: Well developed, well nourished, pleasant male, Non-toxic, No Acute Distress - Head Exam Head Exam: ATRAUMATIC, NORMOCEPHALIC - Eye Exam Eye Exam: EOMI, Normal appearance - ENT Exam ENT Exam: Mucous Membranes Moist - Respiratory Exam Respiratory Exam: absent: Accessory Muscle Use, Respiratory Distress - GI/Abdominal Exam GI & Abdominal Exam: soft, only mildly distended, mild residual lower abdominal tenderness, bowel sounds x4 - Skin Skin Exam: Dry, Warm Assessment and Plan - Assessment and Plan (Free Text) Assessment: 36 year old male who presented with left sided abdominal pain, found to have severe acute uncomplicated diverticulitis. Plan: Markedly improved Will advance diet to regular now and see how he tolerates Cont IV abx, will need a total of at least 2 weeks Spoke with primary team, will D/C all IV pain medications and transition him to PO Patient will need to follow up with GI for a colonoscopy in 6 weeks and can follow up with surgery as needed Ok to D/C once tolerating a full diet without any issues Will discuss with attending physician. Thank you for the pleasure of participating in the care of this patient.
[2016-12-07 08:43] VITALS: BP 113/72; PULSE 63; RESP 18; TEMP 98.5
--- NOTE | 2016-12-07 09:28 | PN ---
DATE: 12/07/2016 I examined the patient this morning. He is a 36-year-old white male being evaluated for severe sigmoid diverticulitis. The patient has been making progress on the current therapeutic regimen, which consists of antibiotics and analgesics. The degree of pain is becoming more manageable and down. The abdomen is somewhat decompressed. He is still experiencing some degree of abdominal distention as well as discomfort with walking. He is handling his liquid diet. PHYSICAL EXAMINATION: VITAL SIGNS: I reviewed this patient's vital signs. HEENT: Noncontributory. LUNGS: Clear to auscultation. HEART: Regular rhythm. ABDOMEN: Significant for no tenderness in the right upper or right lower quadrants. Still palpation of the periumbilical area elicits discomfort in the left lower quadrant. Does have substantial fullness in the area of the left paraumbilical and the left lower quadrant. Both these areas are still very tender to palpation; however, significantly less than on admission. OVERALL ASSESSMENT: This is a 36-year-old white male admitted with sigmoid diverticulitis, making progress on the current therapeutic regimen. Continue current regimen as is and will need to complete a course of at least 2 weeks of antibiotics on the outpatient side. That is at least 9 or 10 days oral after he finishes the IV course in the hospital. Colonoscopy will be warranted at some later date, maybe 6-8-10 weeks out after discharge. Dietary advance as per surgery. Chris Peoples DO, PhD cc: [id number] TT: 12/07/2016 09:27:57 Confirmation # [id number] Dictation # [id number] en [id number]
[2016-12-07] MEDS: cefTRIAXone 1 gm 1 GM/100 ML BAG IVPB SCH (10:31)
--- NOTE | 2016-12-07 15:32 | CP.PCM.DIS ---
<Tanvir Albarado - Last Filed: 12/07/16 15:26> Provider - Provider Date of Admission: 12/03/16 16:42 Attending physician: Sebas Rodrigues MD Primary care physician: Kierra Strange MD Consults: GI: [facility] [facility]: [facility] Time Spent in preparation of Discharge (in minutes): 35 Diagnosis - Discharge Diagnosis (1) Diverticulitis Status: Resolved Priority: High Hospital Course - Lab Results Lab Results: Micro Results 12/04/16 04:40 Urine,Random Urine Culture - Final No Growth (<1,000 CFU/ML) Most Recent Lab Values WBC 5.8 10^3/ul (4.5-11.0) D 12/07/16 07:00 RBC 5.04 10^6/uL (3.5-6.1) 12/07/16 07:00 Hgb 14.0 gm/dL (14.0-18.0) 12/07/16 07:00 Hct 39.5 % (42.0-52.0) L 12/07/16 07:00 MCV 78.4 fL (80.0-105.0) L 12/07/16 07:00 MCH 27.8 pg (25.0-35.0) 12/07/16 07:00 MCHC 35.4 g/dl (31.0-37.0) 12/07/16 07:00 RDW 13.8 % (11.5-14.5) 12/07/16 07:00 Plt Count 238 10^3/uL (120.0-450.0) 12/07/16 07:00 MPV 11.0 fl (7.0-11.0) 12/07/16 07:00 Gran % 56.9 % (50.0-68.0) 12/07/16 07:00 Lymph % (Auto) 27.5 % (22.0-35.0) 12/07/16 07:00 [place] % (Auto) 12.5 % (1.0-6.0) H 12/07/16 07:00 Eos % (Auto) 2.6 % (1.5-5.0) 12/07/16 07:00 Baso % (Auto) 0.5 % (0.0-3.0) 12/07/16 07:00 Gran # 3.29 (1.4-6.5) 12/07/16 07:00 Lymph # 1.6 (1.2-3.4) 12/07/16 07:00 [place] # 0.7 (0.1-0.6) H 12/07/16 07:00 Eos # 0.2 (0.0-0.7) 12/07/16 07:00 Baso # 0.03 K/mm3 (0.0-2.0) 12/07/16 07:00 PT 10.9 Seconds (9.9-11.8) 12/03/16 11:30 INR 1.01 (0.93-1.08) 12/03/16 11:30 APTT 27.9 Seconds (23.7-30.8) 12/03/16 11:30 Sodium 133 mmol/L (132-148) 12/07/16 07:00 Potassium 3.8 mmol/L (3.6-5.0) 12/07/16 07:00 Chloride 100 mmol/L (95-110) 12/07/16 07:00 Carbon Dioxide 25 mmol/L (21-33) 12/07/16 07:00 Anion Gap 12 (10-20) 12/07/16 07:00 BUN 9 mg/dL (7-21) 12/07/16 07:00 Creatinine 0.7 mg/dL (0.5-1.4) 12/07/16 07:00 Est GFR ( Amer) > 60 12/07/16 07:00 Est GFR (Non-Af Amer) > 60 12/07/16 07:00 Random Glucose 90 mg/dL (70-110) 12/07/16 07:00 Calcium 9.1 mg/dL (8.4-10.5) 12/07/16 07:00 Phosphorus 4.0 mg/dL (2.5-4.5) 12/07/16 07:00 Magnesium 1.8 mg/dL (1.7-2.2) 12/07/16 07:00 Total Bilirubin 0.8 mg/dL (0.2-1.3) 12/07/16 07:00 AST 32 U/L (15-59) 12/07/16 07:00 ALT 49 U/L (7-56) 12/07/16 07:00 Alkaline Phosphatase 62 U/L (38-133) 12/07/16 07:00 Total Protein 7.0 g/dL (5.8-8.3) 12/07/16 07:00 Albumin 3.7 g/dL (3.0-4.8) 12/07/16 07:00 Globulin 3.3 gm/dL 12/07/16 07:00 Albumin/Globulin Ratio 1.1 (1.1-1.8) 12/07/16 07:00 Lipase 63 U/L (23-300) 12/03/16 11:30 Urine Color Yellow (YELLOW) 12/04/16 04:40 Urine Appearance Sl cloudy (CLEAR) 12/04/16 04:40 Urine pH 6.5 (4.7-8.0) 12/04/16 04:40 Ur Specific [place] 1.025 (1.005-1.035) 12/04/16 04:40 Urine Protein 30 mg/dL (<30 mg/dL) H 12/04/16 04:40 Urine Glucose (UA) Negative mg/dL (NEGATIVE) 12/04/16 04:40 Urine Ketones 40 mg/dL (NEGATIVE) H 12/04/16 04:40 Urine Blood Moderate (NEGATIVE) H 12/04/16 04:40 Urine Nitrate Negative (NEGATIVE) 12/04/16 04:40 Urine Bilirubin Small (NEGATIVE) H 12/04/16 04:40 Urine Urobilinogen 2.0 E.U./dL (<1 E.U./dL) H 12/04/16 04:40 Ur Leukocyte Esterase Negative [place]/uL (NEGATIVE) 12/04/16 04:40 Urine RBC 2 - 5 /hpf (0-2) 12/04/16 04:40 Urine WBC 0 - 2 /hpf (0-6) 12/04/16 04:40 Ur Epithelial Cells 0 - 2 /hpf (0-5) 12/04/16 04:40 Urine Bacteria Small (NEG) 12/04/16 04:40 - Hospital Course Hospital Course: This is a 36 yo M with no PMH who presents to [facility] ED with complaint of diffuse abdominal pain x2 days, progressively worsening, with concurrent diarrhea and reduced PO intake/appetite, and was found to have severe sigmoid diverticulitis on Abd CT. While here, the patient was seen by Surgery and GI. It was determined with them that patient would be managed medically, with pain control, IV fluids/antibiotics, and bowel rest. After patient was restarted on diet and advanced to regular diet, which he tolerated well, it was agreed among the services that he was stable for discharge. He was given scripts for 9 days of Flagyl and Augmentin (both BID, to complete a 14 day course as per GI), as well as PRN tramadol for 5 days for pain control. He was instructed to follow up with his PMD within 1 week, and with a GI doctor in 6-8 weeks for colonscopy as per GI's instructions. Patient expressed understanding and agreement. He was given an opportunity to ask any questions, which were answered to his satisfaction. Patient was then discharged. Discharge Exam - Additional Findings Additional findings: - Constitutional Non-toxic, No Acute Distress, Resting and sitting comfortably in bed - Head Exam ATRAUMATIC, NORMAL INSPECTION, NORMOCEPHALIC - Eye Exam EOMI, Normal appearance. absent: Conjunctival injection, Scleral icterus, Pupils Unequal/Irregular - ENT Exam Mucous Membranes Moist. absent: Mucous Membranes Dry - Neck Exam Full Rom. Negative for: Tenderness - Respiratory Exam Clear to Auscultation Bilateral, NORMAL BREATHING PATTERN. absent: Accessory Muscle Use, Chest Wall Tenderness, Decreased Breath Sounds, Rales, Rhonchi, Wheezes - Cardiovascular Exam Tachycardia, REGULAR RHYTHM, +S1, +S2. absent: Bradycardia, Diastolic murmur, Irregular Rhythm, JVD, RRR, Systolic Murmur - GI/Abdominal Exam Normal Bowel sounds, Soft, Tenderness (Mild tenderness to palpation at bilateral lower quadrants, pain significantly better compared to exam yesterday) . absent: Distended, Firm, Rigid, Absent/Diminished bowel sounds - Extremities Exam Full ROM, normal capillary refill, normal inspection, pedal pulses present. Negative for: calf tenderness, joint swelling, pedal edema, tenderness - Back Exam Back exam: absent: CVA tenderness (L), CVA tenderness (R) - Neurological Exam Neurological exam: Alert, Oriented x3 - Psychiatric Exam Psychiatric exam: Normal Affect, Normal Mood - Skin Skin Exam: Dry, Intact, Normal Color, Warm Discharge Plan - Discharge Medications Prescriptions: Amoxicillin/Clavulanate [Augmentin 875 MG-125 MG] 1 tab PO BID #18 tab Metronidazole [Flagyl] 500 mg PO BID #18 tab traMADol [Ultram] 50 mg PO TID PRN #15 tab PRN Reason: Pain, Moderate (4-7) - Follow Up Plan Condition: FAIR Disposition: HOME/ ROUTINE Instructions: Colonoscopy (GEN), Diverticulitis (DC) Additional Instructions: Please fill and take all medications as directed. Please follow up with your Primary Medical Doctor within 1 week of discharge. Please establish yourself with and follow up with a GI doctor 6-8 weeks after discharge to obtain a colonoscopy. Referrals: Kierra Strange MD [Primary Care Provider] - <Sebas Rodrigues - Last Filed: 12/07/16 16:30> Provider - Provider Date of Admission: 12/03/16 16:42 Attending physician: Sebas Rodrigues MD Primary care physician: Kierra Strange MD Hospital Course - Lab Results Lab Results: Micro Results 12/04/16 04:40 Urine,Random Urine Culture - Final No Growth (<1,000 CFU/ML) Most Recent Lab Values WBC 5.8 10^3/ul (4.5-11.0) D 12/07/16 07:00 RBC 5.04 10^6/uL (3.5-6.1) 12/07/16 07:00 Hgb 14.0 gm/dL (14.0-18.0) 12/07/16 07:00 Hct 39.5 % (42.0-52.0) L 12/07/16 07:00 MCV 78.4 fL (80.0-105.0) L 12/07/16 07:00 MCH 27.8 pg (25.0-35.0) 12/07/16 07:00 MCHC 35.4 g/dl (31.0-37.0) 12/07/16 07:00 RDW 13.8 % (11.5-14.5) 12/07/16 07:00 Plt Count 238 10^3/uL (120.0-450.0) 12/07/16 07:00 MPV 11.0 fl (7.0-11.0) 12/07/16 07:00 Gran % 56.9 % (50.0-68.0) 12/07/16 07:00 Lymph % (Auto) 27.5 % (22.0-35.0) 12/07/16 07:00 [place] % (Auto) 12.5 % (1.0-6.0) H 12/07/16 07:00 Eos % (Auto) 2.6 % (1.5-5.0) 12/07/16 07:00 Baso % (Auto) 0.5 % (0.0-3.0) 12/07/16 07:00 Gran # 3.29 (1.4-6.5) 12/07/16 07:00 Lymph # 1.6 (1.2-3.4) 12/07/16 07:00 [place] # 0.7 (0.1-0.6) H 12/07/16 07:00 Eos # 0.2 (0.0-0.7) 12/07/16 07:00 Baso # 0.03 K/mm3 (0.0-2.0) 12/07/16 07:00 PT 10.9 Seconds (9.9-11.8) 12/03/16 11:30 INR 1.01 (0.93-1.08) 12/03/16 11:30 APTT 27.9 Seconds (23.7-30.8) 12/03/16 11:30 Sodium 133 mmol/L (132-148) 12/07/16 07:00 Potassium 3.8 mmol/L (3.6-5.0) 12/07/16 07:00 Chloride 100 mmol/L (95-110) 12/07/16 07:00 Carbon Dioxide 25 mmol/L (21-33) 12/07/16 07:00 Anion Gap 12 (10-20) 12/07/16 07:00 BUN 9 mg/dL (7-21) 12/07/16 07:00 Creatinine 0.7 mg/dL (0.5-1.4) 12/07/16 07:00 Est GFR ( Amer) > 60 12/07/16 07:00 Est GFR (Non-Af Amer) > 60 12/07/16 07:00 Random Glucose 90 mg/dL (70-110) 12/07/16 07:00 Calcium 9.1 mg/dL (8.4-10.5) 12/07/16 07:00 Phosphorus 4.0 mg/dL (2.5-4.5) 12/07/16 07:00 Magnesium 1.8 mg/dL (1.7-2.2) 12/07/16 07:00 Total Bilirubin 0.8 mg/dL (0.2-1.3) 12/07/16 07:00 AST 32 U/L (15-59) 12/07/16 07:00 ALT 49 U/L (7-56) 12/07/16 07:00 Alkaline Phosphatase 62 U/L (38-133) 12/07/16 07:00 Total Protein 7.0 g/dL (5.8-8.3) 12/07/16 07:00 Albumin 3.7 g/dL (3.0-4.8) 12/07/16 07:00 Globulin 3.3 gm/dL 12/07/16 07:00 Albumin/Globulin Ratio 1.1 (1.1-1.8) 12/07/16 07:00 Lipase 63 U/L (23-300) 12/03/16 11:30 Urine Color Yellow (YELLOW) 12/04/16 04:40 Urine Appearance Sl cloudy (CLEAR) 12/04/16 04:40 Urine pH 6.5 (4.7-8.0) 12/04/16 04:40 Ur Specific [place] 1.025 (1.005-1.035) 12/04/16 04:40 Urine Protein 30 mg/dL (<30 mg/dL) H 12/04/16 04:40 Urine Glucose (UA) Negative mg/dL (NEGATIVE) 12/04/16 04:40 Urine Ketones 40 mg/dL (NEGATIVE) H 12/04/16 04:40 Urine Blood Moderate (NEGATIVE) H 12/04/16 04:40 Urine Nitrate Negative (NEGATIVE) 12/04/16 04:40 Urine Bilirubin Small (NEGATIVE) H 12/04/16 04:40 Urine Urobilinogen 2.0 E.U./dL (<1 E.U./dL) H 12/04/16 04:40 Ur Leukocyte Esterase Negative [place]/uL (NEGATIVE) 12/04/16 04:40 Urine RBC 2 - 5 /hpf (0-2) 12/04/16 04:40 Urine WBC 0 - 2 /hpf (0-6) 12/04/16 04:40 Ur Epithelial Cells 0 - 2 /hpf (0-5) 12/04/16 04:40 Urine Bacteria Small (NEG) 12/04/16 04:40 Attending/Attestation - Attestation I have personally seen and examined this patient.: Yes I have fully participated in the care of the patient.: Yes I have reviewed all pertinent clinical information, including history, physical exam and plan: Yes Notes (Text): 12/07/16 16:28 36 year old male with no significant past medical history who presented with complaint of lower abdominal pain secondary to severe diverticulitis on CT scan. He was seen by GI and surgery and started on iv fluids, analgesics and antibiotics. His symptoms began to improve and his diet was advanced which he tolerated. He initially complained of dysuria which resolved. UCx was negative. Patient is discharged home to follow up with pmd. Follow up with GI for colonoscopy in 6-8 weeks. Continue with po antibiotics as prescribed. Sebas Rodrigues MD Hospitalist.
== END 2016-12-07 16:48 | disposition home or self-care (01) | DRG 183 ==
LOC: ED 10:20 → ERH 16:42 → 3RNO 18:00 → 3RSO 12-05 00:49
PROVIDERS: ADMIT Internal Medicine; ATTEND Internal Medicine
DX: K57.32 Diverticulitis of large intestine without perforation or abscess without bleeding (principal); D72.829 Elevated white blood cell count, unspecified; F12.90 Cannabis use, unspecified, uncomplicated; K59.00 Constipation, unspecified; Z87.891 Personal history of nicotine dependence; Z83.3 Family history of diabetes mellitus; Z82.3 Family history of stroke; Z83.79 Family history of other diseases of the digestive system; R40.2412 Glasgow coma scale score 13-15, at arrival to emergency department; R31.9 Hematuria, unspecified; R30.0 Dysuria